=== PATIENT | female | born 1980 | race Caucasian/White ===

== ENCOUNTER 2024-08-19 16:28 | Emergency (ER) | payer OTHER ==
[~2024-08-19] VITALS: Ht 160 cm; Wt 86.2 kg
[2024-08-19 16:50] VITALS: BP 110/81; TEMP 98.2; O2SAT 98
[2024-08-19] MEDS ORDERED: ONDA4TAB5 PO (17:41)
[2024-08-19] MEDS ORDERED: AZIT250T PO (17:41)
[2024-08-19] MEDS ORDERED: ALBU18HF2 INH (17:41)
[2024-08-19] MEDS ORDERED: GUAI1TBM19 PO (17:41)
[2024-08-19] MEDS ORDERED: FEXO1TAB11 PO (17:41)
== END 2024-08-19 17:53 | disposition home or self-care (01) ==
LOC: ER 16:38
DX: J06.9 Acute upper respiratory infection, unspecified (principal); Z98.51 Tubal ligation status; Z20.822 Contact with and (suspected) exposure to COVID-19